=== PATIENT | male | born 1930 | race Hispanic/Latino ===

== ENCOUNTER → 2020-01-03 | Day surgery (SDC) | payer MEDICARE ==
[~2020-01-03] MED LIST: DOXAZOSIN MESYLA2 MG PO; GLYCOPYRROLATE INJ 0.2 MG/ML VIAL ONE; METOPROLOL SUCC25 MG PO; OMEPRAZOLE40 MG PO; PROPOFOL IV EMULSION 10 MG/ML 20 ML VIAL ONE
[2020-01-03 07:50] VITALS: BP 123/71
== END | disposition home or self-care (01) ==
LOC: OR 06:01
PROVIDERS: ATTEND Internal Medicine Gastroenterology
DX: K29.70 Gastritis, unspecified, without bleeding (principal); K44.9 Diaphragmatic hernia without obstruction or gangrene; I10 Essential (primary) hypertension; Z68.20 Body mass index [BMI] 20.0-20.9, adult; Z01.810 Encounter for preprocedural cardiovascular examination; K21.9 Gastro-esophageal reflux disease without esophagitis; F31.9 Bipolar disorder, unspecified; F03.90 Unspecified dementia, unspecified severity, without behavioral disturbance, psychotic disturbance, mood disturbance, and anxiety
CPT/HCPCS: 43239; 88305; 88312; 93005; J2704